=== PATIENT | female | born 1970 | race American Indian/Alaskan Native ===

== ENCOUNTER 2016-11-27 20:22 | Emergency (ER) | payer OTHER ==
[2016-11-27 21:35] VITALS: BP 111/74
[2016-11-27] MEDS ORDERED: TYLENOL PO ONE (23:02)
[2016-11-27] MEDS ORDERED: TYLENOL ONE (23:06)
[2016-11-28] MEDS ORDERED: ULTRAM PO ONE (06:40)
[2016-11-28] MEDS ORDERED: BENADRYL PO ONE (06:47)
--- NOTE | 2016-11-28 06:54 | Emergency Department Report ---
ED Review of Systems ROS: Stated complaint: INFECTION IN EYE Other details as noted in HPI ED Past Medical Hx - Past Medical History Previous Medical History?: Yes Additional medical history: obesity - Surgical History Past Surgical History?: Yes Additional Surgical History: Hyst 10/2016 - Social History Smoking Status: Never Smoker Substance Use Type: None Eye Injury Exam - Exam General: Vital signs noted. No distress. Alert and acting appropriately. ED Course Vital Signs 11/27/16 21:33 Temperature 98.1 F Pulse Rate 78 Respiratory 18 Rate Blood Pressure 111/74 O2 Sat by Pulse 97 Oximetry Critical care attestation.: If time is entered above; I have spent that time in minutes in the direct care of this critically ill patient, excluding procedure time. ED Disposition Condition: Stable Referrals: PRIMARY CARE, [Primary Care Provider] - 3-5 Days
== END 2016-11-28 07:15 | disposition home or self-care (01) ==
LOC: ED 20:22
DX: H44.009 Unspecified purulent endophthalmitis, unspecified eye (principal)
CPT/HCPCS: 99282